=== PATIENT | female | born 1990 | race Caucasian/White ===

== ENCOUNTER 2023-12-15 08:21 | Outpatient (CLI) | payer BC ==
[2023-12-15 11:17] LABS: Bilirubin Neg (Negative); Blood, Urine Negative (Negative); Glucose, Urine (Dipstick) Normal (Negative); Ketone, Urine Negative (Negative); Leukocyte 25 (Negative); Nitrite Negative (Negative); Protein, Urine (Dipstick) 15 mg/dl (Neg-Trace); Urobilinogen Normal mg/dL (Less than 2)
[2023-12-15 11:18] LABS: Clarity Hazy (Clear)
[2023-12-15 11:26] LABS: Bacteria/HPF 2+ HPF (None Seen); RBC/HPF 0-3 HPF (0-3)
[2023-12-15 11:29] LABS: Hematocrit 43.9 % (34.9-44.5); Hemoglobin 15.3 g/dL (12.0-15.5); Mean Corpuscular HGB CONC 34.9 g/dL (32.0-36.0); Mean Corpuscular Hemoglobin 30.5 pg (27.0-33.0); Mean Corpuscular Volume 87.5 fl (81.6-98.3); Mean Platelet Volume 11.1 fl (7.4-10.4); Platelet Count 280 10x3/uL (150-450); RBC Distribution Width 12.3 % (11.5-14.5); Red Blood Cell (RBC) Count 5.02 10x6/uL (3.90-5.03); White Blood Cell (WBC) Count 6.8 10x3/uL (3.5-10.5)
[2023-12-15 11:41] LABS: INR-International Normal Ratio 0.9; PTT 27.8 sec (22.0-33.0); Prothrombin Time 9.8 sec (9.5-12.1)
[2023-12-15 12:02] LABS: BHCG - Serum Negative (NEGATIVE); Pregs Control Background? CLEAR/WHITE (CLR/WHITE); Pregs Control Bar Appear? YES (CONTROL BAR)
[2023-12-15 12:05] LABS: Anion Gap 13 mmol/L (10-20); BUN (Urea Nitrogen) 14 mg/dL (7.0-18.7); Calc. Creatinine Clearance 0 mL/min (70-130); Calcium 8.6 mg/dL (7.8-10.44); Carbon Dioxide 22 mmol/L (22-29); Chloride 106 mmol/L (98-107); Estimated GFR 104; Glucose 76 mg/dL (70-105); Potassium 4.3 mmol/L (3.5-5.1); Sodium 137 mmol/L (136-145)
== END 2023-12-15 08:22 | disposition home or self-care (01) ==
LOC: LABBT 08:21
PROVIDERS: ATTEND Urology
DX: Z01.812 Encounter for preprocedural laboratory examination (principal); N20.1 Calculus of ureter
CPT/HCPCS: 80048; 81001; 84703; 85027; 85610; 85730; 87086

== ENCOUNTER 2023-12-24 09:05 | Day surgery (SDC) | payer BC ==
[2023-12-15 08:54] VITALS: BMI 23.3
[2023-12-24] MEDS ORDERED: fentaNYL PF 100 MCG/2 ML SYRINGE ONE (10:45)
[2023-12-24] MEDS ORDERED: PROPOFOL 20 ML ONE (10:45)
[2023-12-24] MEDS ORDERED: Lidocaine 1% PF 5 ML VIAL ONE (10:45)
[2023-12-24] MEDS ORDERED: Midazolam HCl 2 mg/2 ml Vial ONE (11:42)
[2023-12-24] MEDS ORDERED: LevoFLOXacin D5W 500 mg (100 mL) BAG ONE (11:43)
[2023-12-24] MEDS ORDERED: Dexamethasone 20 MG/5 ML VIAL ONE (12:06)
[2023-12-24] MEDS ORDERED: Ondansetron PF 4 MG/2 ML Vial ONE (12:06)
[2023-12-24] MEDS ORDERED: Ketorolac Tromethamine 30 MG (1 mL) VIAL ONE (12:06)
[2023-12-24] MEDS ORDERED: HYDROmorphone 2 MG/ML VIAL SLOW IVP PRN (12:10)
[2023-12-24] MEDS ORDERED: Morphine Sulfate 2 MG/ML SYRINGE SLOW IVP PRN (12:10)
[2023-12-24] MEDS ORDERED: Ondansetron HCl/PF 4 MG/2 ML Vial IVP PRN (12:10)
[2023-12-24] MEDS ORDERED: PACU-Morphine 4MG/ML VIAL SLOW IVP PRN (12:10)
[2023-12-24] MEDS ORDERED: Promethazine HCl 25 MG/ML VIAL IM PRN (12:10)
[2023-12-24] MEDS ORDERED: Phenazopyridine HCl 100 MG TAB ONE (12:47)
[2023-12-24] MEDS ORDERED: Oxybutynin 5 MG TAB ONE (12:48)
[2023-12-24] MEDS ORDERED: Promethazine HCl 25 MG/ML VIAL ONE (13:22)
[2023-12-24] MEDS ORDERED: fentaNYL 50 mcg/mL 1 mL Vial ONE (13:35)
[2023-12-24] MEDS ORDERED: HYDROcodone/Acetaminophen 5/325 mg Tablet ONE (14:38)
== END 2023-12-24 15:20 | disposition home or self-care (01) ==
LOC: SDC 09:05
PROVIDERS: ATTEND Urology
PROC: 0TC68ZZ Extirpation of Matter from Right Ureter, Via Natural or Artificial Opening Endoscopic (ICD-10-PCS; principal; 2023-12-24)
PROC: 0T768DZ Dilation of Right Ureter with Intraluminal Device, Via Natural or Artificial Opening Endoscopic (ICD-10-PCS; principal; 2023-12-24)
DX: N20.1 Calculus of ureter (principal); G43.909 Migraine, unspecified, not intractable, without status migrainosus
CPT/HCPCS: 82365; 88300; C1769; C2617; J1100; J1885; J1956; J2250; J2405; J2550; J2704; J3010